=== PATIENT | female | born 1980 | race Caucasian/White ===

== ENCOUNTER → 2021-09-06 09:49 | Outpatient (BNVA) | payer OTHER, SELFPAY | PROVIDERS: PCP Internal Medicine; Visit Provider Nurse Practitioner Family ==

== ENCOUNTER → 2022-09-13 09:28 | Outpatient (BNVA) | payer OTHER, SELFPAY | PROVIDERS: Visit Provider Nurse Practitioner Family | DX: Z13.89 Encounter for screening for other disorder (principal) ==

== ENCOUNTER 2023-03-21 09:29 | Outpatient (AMB) | payer OTHER, SELFPAY ==
--- NOTE | 2023-03-21 09:35 | MHC.OFFVIS ---
Intake Vital Signs 03/21/23 09:36 Height 5 ft 4 in Weight 168 lb 4 oz BMI 28.9 BP 118/78 Blood Pressure Location Rt brachial Position Sitting Intake Visit Reasons: 6m f/u migraine-Confirmed Intake Note: Patient presents for 6y month migraine. Patient states my migraines are controlled this is my 6 monyh follow uo. Allergies sulfamethoxazole [From Bactrim] Allergy (Intermediate, Verified 09/13/22 09:42) Rash trimethoprim [From Bactrim] Allergy (Intermediate, Verified 09/13/22 09:42) Rash Medication List - Last Reconciled 03/21/23 by DANYA Olmedo Bacillus coagulans (Digestive Advantage Probiotics-Prebiotic) cells PO DAILY dextroamphetamine-amphetamine 10 mg 1 tab PO DAILY PRN verapamil ER 100 mg PO BEDTIME 30 days HPI HPI Comments History of Present Illness Details 42-yr-old female presents for f/u visit. Pt denies any significant interval medical changes. She does plan to have her IUD removed, as it is due to be removed and has decided to try being off any control at this time. She believes her last migraine was during labor day weekend, woke up with head discomfort with coughing, mild, self-resolved. She thought maybe she had a migraine attack while sleeping and that the head discomfort was just a residual headache. [facility] Medical History ADD (attention deficit disorder) Surgical History Hx of lumpectomy H/O breast biopsy Hx of section Family History Father Diabetes mellitus Mother Cancer Social History Household Members: Spouse and Family Household Members Other:: , 2 sons Alcohol intake: current Alcohol intake frequency: holidays/special occasions only Patient Tobacco Use Status: Former Tobacco user Quit Date: 13 years ago Tobacco use type: Cigarette Review of Systems Const All systems reviewed & are unremarkable except as noted in HPI and below Physical Exam Vital Signs: Last Vital Signs BP 118/78 03/21/23 09:36 BMI result Body Mass Index 28.9 Const General: cooperative and no acute distress Orientation/consciousness: patient oriented x3 HEENT Head: Yes normocephalic Resp Effort & Inspection: normal respiratory effort and able to speak in complete sentences Auscultation: clear to auscultation bilaterally Cardio Rate: regular rate Rhythm: regular rhythm Neuro General: patient oriented x3, gait normal and CN's II-XI intact bilaterally Cognition (Neuro): normal cognition Motor exam (neuro): 5/5 motor strength present throughout Psych Appearance: grossly normal Mental Status: mental status grossly normal Speech and movement: Normal speech and movement present Affect: normal affect Attitude: cooperative Thought process: Normal thought process present Thought content: Normal thought content present Insight: Good insight present (Psych) Judgement: Good judgement present (Psych) Assessment & Plan Assessment & Plan (1) Migraine with aura: Code(s): G43.109 - Migraine with aura, not intractable, without status migrainosus (2) Abnormal EEG: Code(s): R94.01 - Abnormal electroencephalogram [EEG] Plan Advised to have routine eye exam. Monitor migraines especially after IUD is reomved. Continue Verapamil ER 100mg qhs. Trial gepant samples (previously provided) at onset of migraine. Ubrelvy 100mg at onset of migraine or Nurtec OCT 75mg at onset of migraine. Do not take together. Discussed common side effects, including but not limited to nausea, drowsiness. Triptans contraindicated d/t migraine w/ complex aura. f/u in 6 months or sooner prn. Coding Level of Care Code Est Pt Level 4 (94276) Diagnoses Migraine with aura G43.109 Abnormal EEG R94.01
[2023-03-21 09:36] VITALS: BP 118/78; BMI 28.9
== END 2023-03-21 10:13 | disposition home or self-care (01) ==
PROVIDERS: Visit Provider Nurse Practitioner Family
DX: G43.109 Migraine with aura, not intractable, without status migrainosus (principal); R94.01 Abnormal electroencephalogram [EEG]
CPT/HCPCS: 99214

== ENCOUNTER → 2023-03-21 09:29 | Outpatient (BNVA) | payer OTHER, SELFPAY | PROVIDERS: Visit Provider Nurse Practitioner Family ==

== ENCOUNTER 2023-09-19 08:07 | Outpatient (AMB) | payer OTHER, SELFPAY ==
--- NOTE | 2023-09-19 08:15 | A.OFFVIS_ITS ---
Intake Vital Signs 09/19/23 08:19 Height 5 ft 4 in Weight 169 lb BMI 29.0 BP 106/80 Blood Pressure Location Rt brachial Position Sitting Pulse 68 Pulse Source Pulse Oximeter Pulse Oximetry (%) 98 Oxygen Delivery Method Room Air Intake Visit Reasons: 6 mnts f/u for Migraines-CONF Intake Note: Patient presents for 6 month follow up migraines. patient hasn't had a migraine since she was here last. Allergies sulfamethoxazole [From Bactrim] Allergy (Intermediate, Verified 09/19/23 08:20) Rash trimethoprim [From Bactrim] Allergy (Intermediate, Verified 09/19/23 08:20) Rash Medication List - Last Reconciled 09/19/23 by DANYA Olmedo Bacillus coagulans (Digestive Advantage Probiotics-Prebiotic) cells PO DAILY verapamil ER 100 mg PO BEDTIME 30 days HPI HPI Comments History of Present Illness Details 42-yr-old female presents for f/u visit. Pt denies any significant interval medical changes. Pt denies any interval migraine attacks. She has not had any lightheadedness. No episodes of spacing out. Tolerating Verapamil well. Has not needed try either the Ubrelvy or Nurtec sample. Not currently on her Adderall for ADHD. [facility] Medical History (Updated 09/19/23 @ 08:40 by DANYA Olmedo) ADD (attention deficit disorder) Surgical History Hx of lumpectomy H/O breast biopsy Hx of section Family History Father Diabetes mellitus Mother Cancer Social History Household Members: Spouse and Family Household Members Other:: , 2 sons Alcohol intake: current Alcohol intake frequency: holidays/special occasions only Patient Tobacco Use Status: Former Tobacco user Quit Date: 13 years ago Tobacco use type: Cigarette Physical Exam Vital Signs: Last Vital Signs Pulse 68 09/19/23 08:19 BP 106/80 09/19/23 08:19 Pulse Ox 98 09/19/23 08:19 Oxygen Delivery Method Room Air 09/19/23 08:19 BMI result Body Mass Index 29.0 Const General: cooperative and no acute distress Orientation/consciousness: patient oriented x3 Resp Effort & Inspection: normal respiratory effort and able to speak in complete sentences Neuro General: patient oriented x3 Cranial nerves: Yes CN's II-XII intact bilaterally Cognition (Neuro): normal cognition Psych Appearance: grossly normal Mental Status: mental status grossly normal Speech and movement: Normal speech and movement present Affect: normal affect Attitude: cooperative Assessment & Plan Assessment & Plan (1) Migraine with aura: Code(s): G43.109 - Migraine with aura, not intractable, without status migrainosus Plan Pt needs to establish care w/ new PCP d/t insurance plan coverage. Continue Verapamil ER 100mg qhs. Trial gepant samples (previously provided) at onset of migraine. Ubrelvy 100mg at onset of migraine or Nurtec OCT 75mg at onset of migraine. Do not take together. Discussed common side effects, including but not limited to nausea, drowsiness. Triptans contraindicated d/t migraine w/ complex aura. f/u in 6-7 months or sooner prn. Coding Level of Care Code Est Pt Level 3 (59994) Diagnoses Migraine with aura G43.109
[2023-09-19 08:19] VITALS: BP 106/80; PULSE 68; O2SAT 98; BMI 29.0
== END 2023-09-19 08:35 | disposition home or self-care (01) ==
PROVIDERS: Visit Provider Nurse Practitioner Family
DX: G43.109 Migraine with aura, not intractable, without status migrainosus (principal)
CPT/HCPCS: 99213

== ENCOUNTER → 2023-09-19 08:07 | Outpatient (BNVA) | payer OTHER, SELFPAY | PROVIDERS: Visit Provider Nurse Practitioner Family ==

== ENCOUNTER 2024-03-30 08:03 | Outpatient (AMB) | payer OTHER, SELFPAY ==
--- NOTE | 2024-03-30 08:05 | MHC.OFFVIS ---
Vital Signs 03/30/24 08:06 Height 5 ft 4 in Weight 171 lb 8 oz BMI 29.4 BP 122/90 H Blood Pressure Location Rt brachial Position Sitting Pulse 75 Pulse Source Pulse Oximeter Pulse Oximetry (%) 99 Oxygen Delivery Method Room Air Intake Visit Reasons: follow up Migraines Intake Note: Pt presents tot he office for a 7 month follow up for migraines. 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 Pt denies any significant interval medical changes. She wonders if there are any studies on Ozempic and migraine- explained unfortunately I am not aware of any at this time. Discussed that fasting can trigger migraine attacks. She also wonders how to tell the difference between a migraine attack w/ visual and sensory aura from a stroke. Reviewed s/s stroke, sudden onset neurological symptoms such as unilateral weakness, speech changes. Advised that if the neuro s/s are different in any way from her typical aura, she should have seek urgent medical attention. Pt has had 1 recent manageable migraine attack last month. She has not had any lightheadedness. No episodes of spacing out. Tolerating Verapamil well. Has not needed try either the Ubrelvy or Nurtec sample. Not currently on her Adderall for ADHD. Her historical migraine is described: unilateral, either right or left, finger tingling or peripheral vision blackness, which progresses into tingling unilateral tingling more towards to the mouth/lips/tongue (ipsilateral to the hand or vision loss). Sometimes will also have speech changes or difficulty with reading/writing comprehension. This can last 30-60 minutes. After this occurs, she has felt totally exhausted and wiped out - for a few hours. Afterwards, if she coughed/sneezed, she would have an ipsilateral discomfort in what feels like her veins - this pain could last into the next day. [facility] Medical History ADD (attention deficit disorder) Surgical History Hx of lumpectomy H/O breast biopsy Hx of section Family History Father Diabetes mellitus Mother Cancer Social History Household Members: Spouse and Family Household Members Other:: , 2 sons Alcohol intake: current Alcohol intake frequency: holidays/special occasions only Patient Tobacco Use Status: Former Tobacco user Tobacco use type: Cigarette Physical Exam Vital Signs: Last Vital Signs Pulse 75 03/30/24 08:06 BP 122/90 H 03/30/24 08:06 Pulse Ox 99 03/30/24 08:06 Oxygen Delivery Method Room Air 03/30/24 08:06 BMI result Body Mass Index 29.4 Const General: cooperative and no acute distress Orientation/consciousness: patient oriented x3 Resp Effort & Inspection: normal respiratory effort and able to speak in complete sentences Neuro General: patient oriented x3 Cranial nerves: Yes CN's II-XII intact bilaterally Cognition (Neuro): normal cognition Psych Appearance: grossly normal Mental Status: mental status grossly normal Speech and movement: Normal speech and movement present Affect: normal affect Attitude: cooperative Assessment & Plan Assessment & Plan (1) Migraine with aura: Code(s): G43.109 - Migraine with aura, not intractable, without status migrainosus Category: Medical (2) Abnormal EEG: Comment: EEG- borderline EEG d/t voltage fast- probably a sign of drug effect. 02/2022 EEG- normal. Code(s): R94.01 - Abnormal electroencephalogram [EEG] Category: Medical Plan Pt needs to establish care w/ new PCP d/t insurance plan coverage. Continue Verapamil ER 100mg qhs. Trial gepant samples (previously provided) at onset of migraine. Ubrelvy 100mg at onset of migraine or Nurtec OCT 75mg at onset of migraine. Do not take together. Discussed common side effects, including but not limited to nausea, drowsiness. Triptans contraindicated d/t migraine w/ complex aura. No spacing out episodes- monitor. f/u in 6-7 months or sooner prn. Coding Level of Care Code Est Pt Level 4 (06398) Diagnoses Migraine with aura G43.109 Abnormal EEG R94.01
[2024-03-30 08:06] VITALS: BP 122/90; PULSE 75; O2SAT 99; BMI 29.4
== END 2024-03-30 08:52 | disposition home or self-care (01) ==
PROVIDERS: Visit Provider Nurse Practitioner Family
DX: G43.109 Migraine with aura, not intractable, without status migrainosus (principal); R94.01 Abnormal electroencephalogram [EEG]
CPT/HCPCS: 99214

== ENCOUNTER → 2024-03-30 08:03 | Outpatient (BNVA) | payer OTHER, SELFPAY | PROVIDERS: Visit Provider Nurse Practitioner Family ==

== ENCOUNTER 2024-10-25 08:31 | Outpatient (AMB) | payer OTHER, SELFPAY ==
--- NOTE | 2024-10-25 08:32 | MHC.OFFVIS ---
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 Pt denies any significant interval medical changes. Pt has not had a breakthrough migraine since the last visit. She has not had any lightheadedness. No episodes of spacing out. Tolerating Verapamil well. Has not needed try either the Ubrelvy or Nurtec sample. Not currently on her Adderall for ADHD. Her historical migraine is described: unilateral, either right or left, finger tingling or peripheral vision blackness, which progresses into tingling unilateral tingling more towards to the mouth/lips/tongue (ipsilateral to the hand or vision loss). Sometimes will also have speech changes or difficulty with reading/writing comprehension. This can last 30-60 minutes. After this occurs, she has felt totally exhausted and wiped out - for a few hours. Afterwards, if she coughed/sneezed, she would have an ipsilateral discomfort in what feels like her veins - this pain could last into the next day. Family history of headache disorders: Mother had more classic migraine and motion sickness- no or as presenting similar to stroke-like symptoms. Her younger son has abdominal symptoms- but no clear indications of migraine. [facility] Medical History ADD (attention deficit disorder) Surgical History Hx of lumpectomy H/O breast biopsy Hx of section Family History Father Diabetes mellitus Mother Cancer Social History Household Members: Spouse and Family Household Members Other:: , 2 sons Alcohol intake: current Alcohol intake frequency: holidays/special occasions only Patient Tobacco Use Status: Former Tobacco user Tobacco use type: Cigarette Physical Exam Vital Signs: Last Vital Signs Pulse 88 10/25/24 08:36 BP 110/68 10/25/24 08:36 Pulse Ox 100 10/25/24 08:36 Oxygen Delivery Method Room Air 10/25/24 08:36 BMI result Body Mass Index 30.4 Const General: cooperative and no acute distress Orientation/consciousness: patient oriented x3 Resp Effort & Inspection: normal respiratory effort and able to speak in complete sentences Neuro General: patient oriented x3 Cranial nerves: Yes CN's II-XII intact bilaterally Cognition (Neuro): normal cognition Psych Appearance: grossly normal Mental Status: mental status grossly normal Speech and movement: Normal speech and movement present Affect: normal affect Attitude: cooperative Assessment & Plan Assessment & Plan (1) Migraine with aura: Code(s): G43.109 - Migraine with aura, not intractable, without status migrainosus Category: Medical (2) Abnormal EEG: Comment: EEG- borderline EEG d/t voltage fast- probably a sign of drug effect. 02/2022 EEG- normal. Code(s): R94.01 - Abnormal electroencephalogram [EEG] Category: Medical Plan Continue Verapamil ER 100mg qhs. Trial gepant samples (previously provided) at onset of migraine. Ubrelvy 100mg at onset of migraine or Nurtec OCT 75mg at onset of migraine. Do not take together. Discussed common side effects, including but not limited to nausea, drowsiness. Triptans contraindicated d/t migraine w/ aura with unilateral facial and upper extremity tingling, and speech changes. No spacing out episodes- continue to monitor f/u in 12 months or sooner prn. Medications: Changed From verapamil ER 100 mg PO BEDTIME 30 days 30 caps 6RF To verapamil ER 100 mg PO BEDTIME 90 days 90 caps 3RF Coding Level of Care Code Est Pt Level 4 (70739) Diagnoses Migraine with aura G43.109 Abnormal EEG R94.01
[2024-10-25 08:36] VITALS: BP 110/68; PULSE 88; O2SAT 100; BMI 30.4
--- OUTSIDE RECORDS SUMMARY | 2024-10-25 08:58 | XMS_ITS | Patient Health Record ---
Author Organization [facility] Address [address] [place] [address] Care Team Providers Care Cement Despatch Operator Name Role Phone FRANCINE CAREY Unavailable [phone] ALLERGIES Allergen (clinical drug ingredient) Drug/Non Drug Allergy documented on EMR Reaction Allergy Type Onset Date Status sulfamethoxazole / trimethoprim Bactrim rash Drug Allergy Active REASON FOR REFERRAL No Information MEDICATIONS Medication SIG (Take, Route, Frequency, Duration) Notes Start Date End Date Status ZyrTEC 10 mg daily Active Omeprazole 20 MG 1 capsule 1/2 to 1 h our before morning meal Orally Once a day for 90 days 10/20/2024 Active Cetirizine HCl 10 MG 1 tablet Orally Onc e a day for 30 days 10/20/2024 Active Omeprazole otc Active Verapamil HCl ER 100 MG 1 capsule Orally Once a day Active SOCIAL HISTORY Tobacco Use: Social History Observation Description Date Details (start date - stop date) Former Smoker NA - NA Sex Assigned At : Social History Observation Description Sex Assigned At Unknown Tobacco Use/Smoking Question Answer Notes Are you a former smoker How long has it been since y ou last smoked? > 10 years Additional Findings: Tobacco User Modera te cigarette smoker (10-19 cigs/day) Alcohol Screen (Audit-C) Question Answer Notes Did you have a drink contain ing alcohol in the past year? Yes How often did you have a dri nk containing alcohol in the past year? 4 or more times a week (4 points) How often did you have 6 or more drinks on one occasion in the past year? Monthly (2 points) Points 6 Interpretation Positive Section Notes: Tob: Former- 10 years ETOH: Weekends Drugs: None Work: [employer] PROBLEMS Problem Type ICD Code Onset Dates Problem Status W/U Status Risk SNOMED Code Notes Problem Vitamin D deficiency , unspecified (E55.9) Active confirmed 57254324 Problem Overweight (E66.3) Active confirmed Ove rweight (806741327) Problem Mixed hyperlipidemia (E78.2) Active confirmed 791068775 Problem Major depressive disorder, single episode, moderate (F32.1) Active confirmed 15491194 Problem Generalized anxiety disorder (F41.1) Active confirmed 24896878 Problem Encounter for screening for diabetes mellitus (Z13.1) Active confirmed Diabetes mellit screening (592174225) Problem Migraine without status migrainosus, not intractable, unspecified migraine type (G43.909) Active confirmed 92909637 Problem Anxiety (F41.9) Active confirmed Anxiet y (59941685) Problem Acquired hyperlipoproteinemia (E78.5) Active confirmed Hyperlipoprotei nemia (2203029) Problem Annual physical exam (Z00.00) Active confirmed Annual health maintenance examination (16549571) Problem Seasonal allergies (J30.2) Active confirmed Seasonal allerg y (211239092) Problem Vitamin D deficiency (E55.9) Active confirmed Vitamin D defic iency (57323923) Problem Migraine with aura and without status migrainosus, not intractable (G43.109) Active confirmed Migrai ne with aura (3094329) Problem Attention deficit disorder (ADD) in adult (F98.8) Active confirmed Adult attentio n deficit hyperactivity disorder (disorder) (058836210) Problem Anemia due to vitami n B12 deficiency, unspecified B12 deficiency type (D51.9) Active confirmed Vitamin B>12< deficiency anaemia (96734315) Problem GERD without esophagitis (K21.9) Active confirmed Gastroes ophageal reflux disease (628005456) Problem Elevated lipids (E78.5) Active confirmed Elevated fastin g lipid profile (107120074633) Problem Obesity (E66.9) Active confirmed Obesit y (680218280) Problem Hypothyroid (E03.9) Active confirmed Hy pothyroid (27083232) Problem Migraine headache (G43.909) Active confirmed Migraine varian t with headache (disorder) (680514787) VITAL SIGNS Heart Rate 78 /min 10/20/2024 Blood pressure diastolic 76 mm Hg 10/20/2024 Oximetry 99 % 10/20/2024 Height 64 in 10/20/2024 Blood pressure systolic 118 mm Hg 10/20/2024 Weight 176.4 lbs 10/20/2024 BMI 30.28 kg/m2 10/20/2024 Encounters Encounter Location Date Provider Diagnosis [facility] [address] [place] [address] 10/20/2024 FRANCINE CAREY Obesity E66.9 ; Migraine with aura and without status migrainosus, not intractable G43.109 ; GERD without esophagitis K21.9 and Seasonal allergies J30.2 [facility] [address] [place] [address] 10/20/2024 FRANCINE CAREY ASSESSMENTS Encounter Date Diagnosis Assessment Notes Treatment Notes Treatment Clinical Notes Section Notes 10/20/2024 Migraine with aura and without status migrainosus, not intractable (ICD-10 - G43.109) Tee is a 43 yo female pt with a pmh of being overweight, ADD, vitamin D deficiency 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 WEight consult for possible Wegovy. #Hyperlipidemia: Hx of. Reassess. # GERD. Omperazole 20 mg po daily #Complex migraines: On verapamil for prophylaxis since 2020. Neurology appointment completed with normal MRI and abnormal response to strobe lights on EEG. #OBGYN screening - 2020, abnormal mammogram and ultrasound. Biopsy reported normal . Has repeat scheduled in 6 months. F/u reveals enlarged lesion in breast resulting in scheudling with OBGYN to have removed. Case discussed with collaborating physician Lavonne who reviewed the assessment and plan. Chart, medications, labs, vital signs reviewed. Dictation was accomplished with the use of Outbrain voice recognition software, prone to medical misidentifications and grammatical errors. This is unintentional and the practitioner does try to identify and correct these, but some could still be present. Please do not hesitate to contact practitioner for clarification. 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 WEight consult for possible Wegovy. #Hyperlipidemia: Hx of. Reassess. # GERD. Omperazole 20 mg po daily #Complex migraines: On verapamil for prophylaxis since 2020. Neurology appointment completed with normal MRI and abnormal response to strobe lights on EEG. #OBGYN screening - 2020, abnormal mammogram and ultrasound. Biopsy reported normal . Has repeat scheduled in 6 months. F/u reveals enlarged lesion in breast resulting in scheudling with OBGYN to have removed. Case discussed with collaborating physician Lavonne who reviewed the assessment and plan. Chart, medications, labs, vital signs reviewed. Dictation was accomplished with the use of Outbrain voice recognition software, prone to medical misidentifications and grammatical errors. This is unintentional and the practitioner does try to identify and correct these, but some could still be present. Please do not hesitate to contact practitioner for clarification. 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 WEight consult for possible Wegovy. #Hyperlipidemia: Hx of. Reassess. # GERD. Omperazole 20 mg po daily #Complex migraines: On verapamil for prophylaxis since 2020. Neurology appointment completed with normal MRI and abnormal response to strobe lights on EEG. #OBGYN screening - 2020, abnormal mammogram and ultrasound. Biopsy reported normal . Has repeat scheduled in 6 months. F/u reveals enlarged lesion in breast resulting in scheudling with OBGYN to have removed. Case discussed with collaborating physician Lavonne who reviewed the assessment and plan. Chart, medications, labs, vital signs reviewed. Dictation was accomplished with the use of Outbrain voice recognition software, prone to medical misidentifications and grammatical errors. This is unintentional and the practitioner does try to identify and correct these, but some could still be present. Please do not hesitate to contact practitioner for clarification. 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 WEight consult for possible Wegovy. #Hyperlipidemia: Hx of. Reassess. # GERD. Omperazole 20 mg po daily #Complex migraines: On verapamil for prophylaxis since 2020. Neurology appointment completed with normal MRI and abnormal response to strobe lights on EEG. #OBGYN screening - 2020, abnormal mammogram and ultrasound. Biopsy reported normal . Has repeat scheduled in 6 months. F/u reveals enlarged lesion in breast resulting in scheudling with OBGYN to have removed. Case discussed with collaborating physician Lavonne who reviewed the assessment and plan. Chart, medications, labs, vital signs reviewed. Dictation was accomplished with the use of Outbrain voice recognition software, prone to medical misidentifications and grammatical errors. This is unintentional and the practitioner does try to identify and correct these, but some could still be present. Please do not hesitate to contact practitioner for clarification. PLAN OF TREATMENT Pending Test Test Name Order Date LIPID PANEL, STANDARD 10/05/2021 LIPID PANEL, STANDARD 02/05/2022 LIPID PANEL, STANDARD 10/20/2024 COMPREHENSIVE METABOLIC PANEL 10/20/2024 COMPREHENSIVE METABOLIC PANEL 10/05/2021 CBC (INCLUDES DIFF/PLT) 10/05/2021 CBC (INCLUDES DIFF/PLT) 10/20/2024 URINALYSIS, COMPLETE 10/20/2024 INSULIN 10/05/2021 VITAMIN B12 10/20/2024 VITAMIN D,25-OH,TOTAL,IA 10/20/2024 VITAMIN D,25-OH,TOTAL,IA 10/05/2021 Hemoglobin [id number] 10/20/2024 TSH+T3+Free T4+T3 Free 10/20/2024 Next Appt Details Provider Name:FRANCINE CAREY, 11/24/2024 08:30:00 AM, [address], [place], [address], Provider Name:FRANCINE CAREY, 01/13/2025 09:45:00 AM, [address], [place], [address], Insurance Providers Payer Name Payer Address Payer Phone Subscriber Number Group Number Insured Name Patient Relationship to Insured Coverage Start Date Coverage End Date [employer] [address] [place] [id number] MEDEL Self - patient is the insured MEDICATIONS ADMINISTERED Medication Instructions Date of Administration Dosage Notes MICC B12 INJECTION 11/07/2020 lot # [id number] MICC B12 INJECTION 11/21/2020 lot# [id number] MICC B12 INJECTION 12/05/2020 lot# [id number] MEDICAL (GENERAL) HISTORY Medical History History ICD Code Anxiety F41.9 Depression F32.A Seasonal allergies J30.2 Migraine headache G43.909 Obesity E66.9 Surgical History Surgery Date(Month/Year) section 07/14/2009 section 04/28/2011 benign lump removed in right breast tennille y 1999'
--- OUTSIDE RECORDS SUMMARY | 2024-10-25 08:59 | XMS_ITS ---
Author Organization [facility] Address [address] [place] [address] Care Team Providers Care Drawing Supervisor Name Role Phone FRANCINE CAREY Unavailable [phone] ALLERGIES Allergen (clinical drug ingredient) Drug/Non Drug Allergy documented on EMR Reaction Allergy Type Onset Date Status sulfamethoxazole / trimethoprim Bactrim rash Drug Allergy Active REASON FOR VISIT pt is here for f/u- pt has not been seen in few years just coming back would like to discuss med refills and would like rx for omperzole MEDICATIONS Medication SIG (Take, Route, Frequency, Duration) [...] User Modera te cigarette smoker (10-19 cigs/day) Section Notes: Tob: Former- 10 years ETOH: Weekends Drugs: None Work: [employer] PROBLEMS Problem Type ICD Code Onset Dates Problem Status W/U Status Risk SNOMED Code Notes Problem Anxiety (F41.9) Active confirmed Anxiet y (38521412) Problem Seasonal allergies (J30.2) Active confirmed Seasonal allerg y (388569354) Problem Migraine headache (G43.909) Active confirmed Migraine varian t with headache (disorder) (271966050) Problem Obesity (E66.9) Active confirmed Obesit y (095167282) Problem GERD without esophagitis (K21.9) Active confirmed Gastroesophagea l reflux disease (715037097) Problem Migraine with aura and without status migrainosus, not intractable (G43.109) Active confirmed Migraine with a ura (0448548) VITAL SIGNS Blood pressure systolic 118 mm Hg 10/21/19 25 Blood pressure diastolic 76 mm Hg 025 Heart Rate 78 /min 10/20/2024 Height 64 in 10/20/2024 Weight 176.4 lbs 10/20/2024 BMI 30.28 kg/m2 10/20/2024 Oximetry 99 % 10/20/2024 Encounters Encounter Location Date Provider Diagnosis [facility] [address] [place] [address] 10/20/2024 FRANCINE CAREY Obesity E66.9 ; Migraine with aura and without status migrainosus, not intractable G43.109 ; GERD without esophagitis K21.9 and Seasonal allergies J30.2 ASSESSMENTS Encounter Date Diagnosis Assessment Notes Treatment Notes Treatment Clinical Notes Section Notes 10/20/2024 Obesity (ICD-10 - E66.9) Tee is a 43 yo female pt with a pmh of being overweight, ADD, vitamin D deficiency 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 This is unintentional and the practitioner does try to identify and correct these, but some could still be present. Please do not hesitate to contact practitioner for clarification. 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 This is unintentional and the practitioner does try to identify and correct these, but some could still be present. Please do not hesitate to contact practitioner for clarification. 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 This is unintentional and the practitioner does try to identify and correct these, but some could still be present. Please do not hesitate to contact practitioner for clarification. PLAN OF TREATMENT Medication Medication Name Sig Start Date Stop Date Notes Omeprazole 20 MG 1 capsule 1/2 to 1 h our before morning meal Orally Once a day for 90 days 10/20/2024 Cetirizine HCl 10 MG 1 tablet Orally Onc e a day for 30 days 10/20/2024 Pending Test Test Name Order Date LIPID PANEL, STANDARD 10/20/2024 COMPREHENSIVE METABOLIC PANEL 10/20/2024 CBC (INCLUDES DIFF/PLT) 10/20/2024 URINALYSIS, COMPLETE 10/20/2024 VITAMIN B12 10/20/2024 VITAMIN D,25-OH,TOTAL,IA 10/20/2024 Hemoglobin [id number] 10/20/2024 TSH+T3+Free T4+T3 Free 10/20/2024 Next Appt Details Follow Up: 6 Weeks, Reason: Weight Consult- Wegovy initation Provider Name:FRANCINE CAREY, 11/24/2024 08:30:00 AM, [address], [place], [address], Provider Name:FRANCINE CAREY, 01/13/2025 09:45:00 AM, [address], [place], [address], Progress Notes * LARISSA BROWNDOB: 0 (43 yo F)Acc No.[id number]:10/20/2024 Progress Notes Patient:??LARISSA BROWN Provider:??FRANCINE CAREY PA-C :1980?Age:43 Y?Sex:Fe male Date:10/20/2024 Address:[address] [place], [place] [address] Subjective: * Chief Complaints: * ?1. Pt is here for f/u- pt has not been seen in few years just coming back would like to discuss med refills and would like rx for omperzole. * HPI: ?Constitutional:? Larissa is a 43-year-old female with a past medical history of migraines, maintained on verapamil, GERD, obesity who presents today for a reestablishment of care. Patient was last seen in 2021. She reports that she thought her insurance no longer recommends this is a primary care. Patient is coming to reestablish. She is interested in getting on Wegovy, as the patient was formally doing Ozempic through a med spa. Patient reports that she was successful, with minimal side effects. She is no longer taking citalopram. She denies any chest pain or shortness of breath. She reports the last time she had labs was about 2 years ago. She denies any nausea, vomiting, diarrhea. She has no other concerns today. She is overdue for physical. * ROS:?Constitutional: Patient denies any excessive fatigue with exercise, no weight loss, no fever and no night sweats ???Eyes: No eye discharge, no itching, no redness. ???Ear nose throat: No sore throat, postnasal drip, runny nose, Sneezing ???Cardiovascular: No chest pain, no shortness of breath, no dyspnea on exertion, no PND, no orthopnea, no irregular pulse ???Respiratory: No chronic cough, no hemoptysis, no sputum, no wheezing ???GI, no diarrhea, no constipation no blood in the stools, no pain associated with eating, no indigestion ???Genitourinary: No painful urination no hesitancy no blood in the urine ???Musculoskeletal: Mild knee discomfort fro recent fall. no limitations to walking and running, no joint deformity, no joint stiffness, no chronic back pain, no noise with joint movement ???Integumentary, no new skin rash. No new changes in skin moles ???Neurological: No history of seizures, memory loss, No language dysfunction, No inability to concentrate, no localized weakness, no sensation loss, no confusion ???Psychiatric: No depression, no suicidal thoughts, no anxiety ???Endocrine: No polyuria no polyphagia or polydipsia, no heat intolerance no cold intolerance ???Hematological: No easy bruising or Lymph node swelling. * Medical History:??Anxiety, D epression, Seasonal allergies, Migraine headache, Obesity. * Surgical History:?? section 07/14/2009, section 04/28/2011, benign lump removed in right breast early . * Hospitalization/Major Diagno stic Procedure:??Denies Past Hospitalization. * Family History:??Father: pita qiu, diagnosed with Diabetes mellitus without mention of complication, type II or unspecified type, not stated as uncontrolled.??Mother: .??2 son(s) . .?? Mom: Metastatic lung cancer to brain Dad: DM Son 15, 13. * Social History:?Tobacco Use:??Tobacco Use/Smoking??Are you a??former smoker,??How long has it been since you last smoked???> 10 years,??Additional Findings: Tobacco User??Moderate cigarette smoker (10-19 cigs/day).?Tob: Former- 10 years ???ETOH: Weekends ???Drugs: None ???Work: [employer]. * Medications:??Taking Omepraz ole , Notes to Pharmacist: otc, Taking Verapamil HCl ER 100 MG Capsule Extended Release 24 Hour 1 capsule Orally Once a day , Taking ZyrTEC , Notes to Pharmacist: 10 mg daily, Discontinued Amphetamine-Dextroamphet ER 10 MG Capsule Extended Release 24 Hour 1 capsule in the morning Orally Once a day , Discontinued Citalopram Hydrobromide 20 MG Tablet 1 tablet Orally Once a day , Medication List reviewed and reconciled with the patient * Allergies:??Bactrim: rash. Objective: * Vitals:??HR:78/min, BP:118/7 6mm Hg, Wt:176.4lbs, BMI:30.28Index, Ht: 64 in, Oxygen sat %:99%. * Physical Examination:?General: Speaking in full, clear sentences. Well appearing ?Head and ENT: PERRLA EOMI, neck supple, good range of motion, thyroid within normal limits. No sinus tenderness. ?Cardiovascular system S1 and S2 with no murmur or gallop or rubs. ?Lungs clear to percussion and auscultation ?Abdomen soft positive bowel sounds no hepatosplenomegaly ?Extremities no edema. ?Neuro: No gross deficit, sensation and power intact. Gait is stable. Reflexes appear normal ?Gait appears age-appropriate ?Skin exam shows no rashes. Assessment: * Assessment: 1.??Obesity - E66.9 (Primary )??2.??Migraine with aura and without status migrainosus, not intractable - G43.109??3.??GERD without esophagitis - K21.9??4.??Seasonal allergies - J30.2?? 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 This is unintentional and the practitioner does try to identify and correct these, but some could still be present. Please do not hesitate to contact practitioner for clarification. Plan: * Treatment: 2.??Seasonal allergies?? Start Cetirizine HCl Tablet, 10 MG, 1 tablet, Orally, Once a day, 30 days, 30, Refills 1.? * Labs:?? * ?Lab: Hemoglobin A1 [id number] ?Lab: TSH+T3+Free T 4+T3 Free ?Lab: VITAMIN D,25- OH,TOTAL,IA ?Lab: URINALYSIS, C OMPLETE ?Lab: COMPREHENSIVE METABOLIC PANEL ?Lab: CBC (INCLUDES DIFF/PLT) ?Lab: VITAMIN B12 ?Lab: LIPID PANEL, STANDARD * Follow Up:??6 Weeks (Reason: Weight Consult- Wegovy initation) * Images: Billing Information: * Visit Code:?? 50216 Office Visit, Est Pt., Level 4. Modifiers: SA * Procedure Codes:?? Care Plan Details* * Sign off status: Completed true * Provider:??FRANCINE CAREY PA-C Date:?? History and Physical Notes * HPI (History of Present Illness) Category Sub-Category Detail Notes Category Not es Constitutional Larissa is a 43-year-old female with a past medical history of migraines, maintained on verapamil, GERD, obesity who presents today for a reestablishment of care. Patient was last seen in 2021. She reports that she thought her insurance no longer recommends this is a primary care. Patient is coming to reestablish. She is interested in getting on Wegovy, as the patient was formally doing Ozempic through a med spa. Patient reports that she was successful, with minimal side effects. She is no longer taking citalopram. She denies any chest pain or shortness of breath. She reports the last time she had labs was about 2 years ago. She denies any nausea, vomiting, diarrhea. She has no other concerns today. She is overdue for physical. Physical Examination Category Sub-Category Detail Notes Section Note s General: Speaking in full, clear sentences. Well appearing Head and ENT: PERRLA EOMI, neck supple, good range of motion, thyroid within normal limits. No sinus tenderness. Cardiovascular system S1 and S2 with no murmur or gallop or rubs. Lungs clear to percussion and auscultation Abdomen soft positive bowel sounds no hepatosplenomegaly Extremities no edema. Neuro: No gross deficit, sensation and power intact. Gait is stable. Reflexes appear normal Gait appears age-appropriate Skin exam shows no rashes
--- OUTSIDE RECORDS SUMMARY | 2024-10-25 08:59 | XMS_ITS ---
Author Organization [employer] [facility] Address [address] [place] [address] Care Team Providers Care Research Greenhouse Supervisor Name Role Phone FRANCINE CAREY Unavailable [phone] REASON FOR VISIT Weight Loss Management Appt Encounters Encounter Location Date Provider Diagnosis [facility] [employer] [facility] [address] [place] [address] 10/20/2024 FRANCINE CAREY PLAN OF TREATMENT Next Appt Details Provider Name:FRANCINE CAREY, 11/24/2024 08:30:00 AM, [address], [place], [address], Provider Name:FRANCINE CAREY, 01/13/2025 09:45:00 AM, [address], [place], [address], Progress Notes * SHERLEY BROWNDOB: 0 (43 yo F)Acc No.[id number]:10/20/2024 Patient:??SHERLEY BROWN :1980?Age:43 Y?Sex:Fe male Address:[place] [address] * true * Date:??
== END 2024-10-25 09:07 | disposition home or self-care (01) ==
LOC: HO.HSMS 08:31
PROVIDERS: PCP Internal Medicine; Visit Provider Nurse Practitioner Family
DX: G43.109 Migraine with aura, not intractable, without status migrainosus (principal); R94.01 Abnormal electroencephalogram [EEG]
CPT/HCPCS: 99214

== ENCOUNTER → 2024-10-25 08:31 | Outpatient (BNVA) | payer OTHER, SELFPAY | PROVIDERS: PCP Internal Medicine; Visit Provider Nurse Practitioner Family ==